=== PATIENT | male | born 1950 | race Caucasian/White ===

== ENCOUNTER → 2018-05-22 | Outpatient (CLI) | payer OTHER ==
[~2018-05-22] MED LIST: ASPIRIN81 M2 PO; B-100 COMPLEX1 EAC1 PO; CENTRUM SILVER1 EAC4 PO; FISH OIL 1,001000 M1 PO; FLAX SEED OIL1000 MG PO; FOLIC ACID1 MG PO; LISINOPRIL10 MG PO; PROTONIX40 M2 PO; VITAMIN C120 GM; VITAMIN D400 UNI1 PO; ZOCOR 10 MG TAB10 MG PO; [UNRECOGNIZED DRUG - OTHER]
== END ==
LOC: M.CT 08:31
DX: Z13.6 Encounter for screening for cardiovascular disorders (principal)

== ENCOUNTER → 2019-02-19 | Outpatient (CLI) | payer OTHER | LOC: M.RAD 14:27 | DX: J15.8 Pneumonia due to other specified bacteria (principal); R06.02 Shortness of breath ==

== ENCOUNTER → 2019-08-27 | Outpatient (CLI) | payer OTHER | LOC: M.MRI 08:36 | DX: S83.232D Complex tear of medial meniscus, current injury, left knee, subsequent encounter (principal); M71.22 Synovial cyst of popliteal space [Baker], left knee; M25.862 Other specified joint disorders, left knee; X58.XXXD Exposure to other specified factors, subsequent encounter ==

== ENCOUNTER → 2020-10-14 | Outpatient (CLI) | payer OTHER ==
[~2020-10-14] MED LIST changes: +CENTRUM ADULTS1 EACH PO; +HERBAL ENERGY1 EACH PO; +IRON18 M1 PO; +LIPITOR 20 MG T20 M1 PO; +LISINOPRIL-HCT1 EAC2 PO; +VITAMIN C500 MG PO; +VITAMIN D21250 MC1 PO; +VITAMIN D3100 GM PO
== END ==
LOC: M.LAB 09:34
PROVIDERS: ATTEND Orthopaedic Surgery
DX: Z01.812 Encounter for preprocedural laboratory examination (principal); Z20.822 Contact with and (suspected) exposure to COVID-19; S83.241A Other tear of medial meniscus, current injury, right knee, initial encounter; X58.XXXA Exposure to other specified factors, initial encounter; Y93.89 Activity, other specified; Y92.89 Other specified places as the place of occurrence of the external cause; Y99.8 Other external cause status

== ENCOUNTER → 2020-10-17 | Day surgery (SDC) | payer OTHER ==
[~2020-10-17] MED LIST changes: +ASPIRIN325 PO; +NORCO5 PO
--- NOTE | ~2020-10-17 | OP ---
[address] [address] OPERATIVE REPORT Name: JARET REHMAN Room: [facility]#: [id number] Admission: 10/17/20 Attend Phys: aMryse Cage DO Discharge: Date of : 46 Report #: [id number] THIS REPORT FOR: cc: Darinel Waters MD, Dean L. MD ~ Maryse Cage DO DATE OF SERVICE: 10/17/[address] Leander Jackman dictating for Dr. Maryse Cage. PREOPERATIVE DIAGNOSIS: Right knee with medial meniscus tear. POSTOPERATIVE DIAGNOSES: 1. Right knee with complex medial meniscus tear. 2. 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 3. 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 PROCEDURES PERFORMED: 1. Right knee arthroscopy with partial medial meniscectomy. 2. Chondroplasty of medial compartment. SURGEON: Maryse Cage DO HAND PAINT MIXER: Leander Jackman DO ANESTHESIA: General and 0.5% Marcaine. ANTIBIOTICS: 2 gram Ancef preoperatively. ESTIMATED BLOOD LOSS: 5 mL. SPECIMENS: None. COMPLICATIONS: None. CONDITION: The patient is stable to PACU. INDICATIONS FOR PROCEDURE: The above-stated patient is a 70-year-old male who is complaining of longstanding right knee pain after an injury. The patient reports that the pain is mainly localized to the medial compartment. MRI was performed that demonstrated a complex tear of the medial meniscus. The patient attempted conservative management consisting of steroid injection, which did not provide relief for her symptoms. Therefore, surgical intervention pertaining to the right knee scope with partial medial meniscectomy and all other indicated procedures were discussed. Risks, benefits, and complications were discussed. [place] [address] OPERATIVE REPORT Name: JARET REHMAN Room: [facility].#: [id number] Admission: 10/17/20 Attend Phys: Maryse Cage DO Discharge: Date of : 46 Report #: [id number] Potential but not limited to infection, bleeding, neurovascular injury, DVT, PE, postoperative stiffness, need for repeat surgical intervention, and possible progression to total knee arthroplasty. All other inherent risks of general anesthesia. The patient expressed understanding and elected to proceed and was consented. INTRAOPERATIVE FINDINGS: Upon diagnostic arthroscopy of the right knee, there was noted grade 4 chondromalacia of the medial femoral condyle and medial tibial plateau with complex medial meniscus tear. There was also grade 3 chondromalacia of the undersurface of the patella; otherwise, ACL appeared to be grossly intact. There was no significant chondral abnormality pertaining to the lateral compartment. Lateral meniscus was also intact as well. DESCRIPTION OF PROCEDURE: The patient was seen and examined in preoperative holding area. Again, surgical risks, benefits, complications were discussed. The patient elected to proceed. After this, the right lower extremity was marked and the patient was transferred to the operative suite and placed in supine position on a well-padded operating table. Preoperative antibiotics were administered. Next, a time-out was performed to identify correct patient, laterality, and procedure to be performed. All in attendance were in agreement. After this, the right lower extremity was prepped and draped in sterile fashion. The right lower extremity was exsanguinated and the tourniquet was raised to 300 mmHg for approximately 36 minutes. Next, a #15 blade was used to create the lateral portal site. After this, please see arthroscopic diagnostic findings as stated above. Next, the medial portal was established with a spinal needle for localization. Attention was turned to the medial compartment. At this time, an arthroscopic shaver was used to debride the torn medial meniscus. Arthroscopic shaver was also used to debride all loose bodies and loose chondral flaps from the undersurface of the medial femoral condyle and medial tibial plateau. Next, attention was then turned to the lateral compartment, and which the lateral meniscus was probed and determined to be without tear or injury. Next, the patellofemoral compartment was visualized again and noted grade 3 chondromalacia of the undersurface of the patella without chondral defect of the trochlea. After this, the knee was drained of all fluid. Incisions were closed with nylon suture in simple interrupted fashion. The knee was then injected with 10 mL of local anesthetic and steroid. Sterile dressing was applied consisting of Xeroform, 4 x 4's, ABD and an Niall wrap. The patient was then awakened from anesthesia and transferred to PACU in stable condition. All counts were correct x 2 during the procedure. The patient tolerated the procedure well. There were no complications. Dr. Cage was present throughout the entirety of the case. POSTOPERATIVE PLAN: The patient will be weightbearing as tolerated to the right lower extremity. She will maintain her dressing clean, dry, and intact for approximately 72 hours and then may transition to waterproof bandages. [address] [address] OPERATIVE REPORT Name: JARET REHMAN Room: [facility]#: [id number] Admission: 10/17/20 Attend Phys: Maryse Cage DO Discharge: Date of : 46 Report #: [id number] Otherwise, we will follow up in approximately 2 weeks' time for followup in the office. By: [id number] Cage DO /juany
[2020-10-17 11:43] LABS: HEMATOCRIT 46.2 % (42.0-52.0); HEMOGLOBIN 15.7 gm/dL (14.0-18.0); MCH 33.8 pg (26.0-34.0); MCV 99.4 fL (80.0-100.0); MPV 7.5 fl. (7.2-11.1); RBC 4.65 mil/uL (4.50-6.00); RDW-CV 12.8 % (10.5-14.5); WBC 5.1 thou/uL (4.0-11.0)
[2020-10-17 11:49] LABS: CALCIUM 8.9 mg/dL (8.5-10.1); CREATININE 0.9 mg/dL (0.6-1.3); POTASSIUM 3.7 mmol/L (3.5-5.1)
[2020-10-17 11:54] LABS: ALBUMIN 3.5 g/dL (3.4-5.0); TOTAL BILIRUBIN 0.5 mg/dL (<0.1-1.0); TOTAL PROTEIN 7.7 g/dL (6.4-8.2)
--- NOTE | 2020-10-17 13:13 | EKG ---
[place] [address] ELECTROCARDIOGRAM REPORT Name: JARET REHMAN Room: [facility]#: [id number] Admission: 10/17/20 Attend Phys: Maryse Cage DO Discharge: Date of : 46 Date of Service: 10/17/20 1127 Report #: [id number] THIS REPORT FOR: //name// [facility] Test Date: 2020-10-17 Test Time: 11:27:50 Pat Name: JARET REHMAN Department: Room: Gender: Budget Clerk: : 1950 Requested By: Mrayse Cage Order Number: [id number] MD: Joe Starks Measurements Intervals [place] Rate: 88 P: 53 LA: 142 QRS: -20 QRSD: 99 T: 53 QT: 377 QTc: 457 Interpretive Statements Sinus rhythm Borderline left axis deviation Compared to ECG 03/22/2012 04:53:52 No significant changes Electronically Signed On 10-17-2020 13:13:14 CDT by Joe Starks [email or web address] <ELECTRONICALLY SIGNED> By: Joe Starks MD, [facility] 10/17/20 1313 1127 1127 Joe Starks MD, [facility] /EPI
== END | disposition home or self-care (01) ==
LOC: M.SUR
PROVIDERS: ATTEND Orthopaedic Surgery
DX: M25.561 Pain in right knee (principal); S83.231A Complex tear of medial meniscus, current injury, right knee, initial encounter; M94.261 Chondromalacia, right knee; Z79.82 Long term (current) use of aspirin; Z79.899 Other long term (current) drug therapy; X58.XXXA Exposure to other specified factors, initial encounter; Y93.89 Activity, other specified; Y92.89 Other specified places as the place of occurrence of the external cause; Y99.8 Other external cause status